=== PATIENT | female | born 1970 | race Caucasian/White ===

== ENCOUNTER 2022-05-11 10:10 | Observation (INO) ==
--- NOTE | 2022-05-09 15:43 | Anesthesiology Consultation ---
Date of Service May 09, 2022 Assessment & Plan (1) Encounter for pre-operative examination: - COVID screening: Per assessment on 05/04: No known COVID-19 positive contacts or current COVID-19 related symptoms. Travel screen negative. Patient vaccinated. At surgeon discretion if preop Covid testing being done. - Patient acceptable risk for surgery pending preop BMP (done 05/09/22, [place]- results pending). - addendum 05/10/22: BMP resulted, as above and reviewed-acceptable to proceed. - Patient requiring admission post-operatively. Plan for recheck with COVID Day AM DOS due to possibility that patient may have a roommate. OR aware. Day order placed. Chart Review Chart Review: Acceptable Risk for Surgery and Patient NOT seen in Pre Admission Testing History Surgery Operation Date: 05/11/22 12:55 Proposed Procedures p L3-L5 Decompression and Fusion, Spinal Cord Monitoring - Kirill Castellanos DO Height/Weight Height: 5 ft 4 in Weight: 104.326 kg Allergies Allergy/AdvReac Type Severity Reaction Status Date / Time theophylline Allergy Slo-bid Verified 05/11/22 10:41 (unknown reaction as child) Medications Home Medications Medication Instructions Recorded Confirmed Last Taken acetaminophen 325 mg tablet 325 mg PO QAM PRN Pain 01/22/22 05/11/22 05/11/22 08:00 (Tylenol) atorvastatin 20 mg tablet 20 mg PO QAM 01/22/22 05/11/22 05/11/22 08:00 fluticasone propionate 50 1 spray intranasal Q12H PRN 01/22/22 05/11/22 05/11/22 08:00 mcg/actuation nasal Allergic Symptoms spray,suspension furosemide 20 mg tablet (Lasix) 20 mg PO QAM PRN Fluid Retention 01/22/22 05/11/22 Unknown loratadine 10 mg tablet (Claritin) 10 mg PO DAILY PRN Allergic 01/22/22 05/11/22 05/10/22 08:00 Symptoms multivitamin 1 tab PO QAM 01/22/22 05/11/22 05/10/22 14:00 omeprazole 20 mg tablet,delayed 20 mg PO QAM PRN Acid Reflux 05/04/22 05/11/22 05/11/22 08:00 release Active Medications Generic Name Dose Route Start Last Admin Trade Name Freq PRN Reason Stop Dose Admin Acetaminophen 1,000 mg 05/11/22 06:00 05/11/22 10:58 Acetaminophen 500 Mg Tab PO 05/11/22 18:00 Not Given PREOP DEYSI Celecoxib 200 mg 05/11/22 06:00 05/11/22 10:57 Celebrex 200 Mg Cap PO 05/11/22 18:00 200 mg PREOP DEYSI Administration Gabapentin 900 mg 05/11/22 06:00 05/11/22 10:58 Gabapentin 900 Mg Dose PO 05/11/22 18:00 900 mg PREOP DEYSI Administration Lactated Ringer's 1,000 mls @ 15 mls/hr 05/11/22 06:00 05/11/22 11:07 Lr IV 05/12/22 05:59 15 mls/hr .Q24H DEYSI Administration Past Medical History Medical History Asthma CHILDHOOD, NO ISSUES SINCE EARLY TEENS Endometriosis GERD (gastroesophageal reflux disease) Hx of renal calculi ABLE TO PASS W/ OUT INTERVENTION Hyperlipidemia Obesity Seasonal allergies Past Family History Family History Other No family history of adverse response to anesthesia Past Surgical History Surgical History Hx of section Hx of hysterectomy Hx of laparoscopy Hx of oral surgery Social History Smoking Status: Former smoker tobacco type: cigarettes Smoking cigarettes per day: QUIT 01/2022 Do You Dip or Chew Tobacco: No Hx Alcohol Use: Yes alcohol intake frequency: a few times a week Hx Substance Use: No substance use type: does not use Physical Exam Vital Signs Last Vital Signs Temp 36.7 C 05/11/22 10:44 Pulse 70 05/11/22 10:44 Resp 20 05/11/22 10:44 BP 113/78 05/11/22 10:44 Pulse Ox 95 05/11/22 10:44 O2 Del Method Room Air 05/11/22 10:44 Lab Results Anesthesia Preop Results Results Anesthesia Widget: WBC 7.80 K/ul (4.8-10.8) 05/09/22 Hgb 12.7 g/dl (12.0-16.0) 05/09/22 Hct 38.8 % (37.0-47.0) 05/09/22 Plt 311 K/uL (130-400) 05/09/22 Na 141 mmol/L (136-145) 05/09/22 K 3.9 mmol/L (3.5-5.1) 05/09/22 Cl 108 mmol/L (98-107) H 05/09/22 CO2 28 mmol/L (21-32) 05/09/22 BUN 13 mg/dl (6-23) 05/09/22 Creat 0.59 mg/dl (0.6-1.2) L 05/09/22 Glucose Level 117 mg/dl (70-99(Fasting)) H 05/09/22 PT 10.5 Seconds (9.0-12.0) 05/09/22 PTT 25.9 Seconds (21.0-31.0) 05/09/22 INR 1.0 (0.9-1.1) 05/09/22 Urine Color Yellow 05/09/22 Urine Appearance Clear (Clear) 05/09/22 Urine pH 6.5 (4.5-7.5) 05/09/22 Urine Specific [place] 1.024 (1.000-1.030) 05/09/22 Urine Protein Negative (Negative) 05/09/22 Urine Glucose (UA) Negative (Negative) 05/09/22 Urine Ketones Negative (Negative) 05/09/22 Urine Blood Negative (Negative) 05/09/22 Urine Nitrite Negative (Negative) 05/09/22 Urine Bilirubin Negative (Negative) 05/09/22 Urine Urobilinogen Negative (Negative) 05/09/22 Urine Leukocyte Esterase Negative (Negative) 05/09/22 SARS-CoV-2, RNA, NAAT NEGATIVE (NEGATIVE) 05/11/22 Blood Type A Positive 05/09/22 Antibody Screen NEGATIVE 05/09/22 Testing Electrocardiogram Date: 01/26/22 NSR at 74bpm. Chest X-Ray Date: 01/26/22 Findings: + NAD
[~2022-05-11 10:10] MED LIST: ACETAMINOPHEN 500 MG TAB PO SCH; CeleBREX 200 MG CAP PO SCH; GABAPENTIN 900 MG DOSE PO SCH; LR 15ML/HR IV SCH; ceFAZolin 2000MG 2,000 MG/15 ML SYR IV SCH
[2022-05-11] MEDS ORDERED: MIDAZOLAM HCL 1 MG/ML 2ML VIAL ONE (11:14)
[2022-05-11] MEDS ORDERED: fentaNYL citrate PF 100 MCG/2 ML VIAL ONE ×3 (11:14→15:24)
[2022-05-11] MEDS ORDERED: ATROPINE SULFATE 0.1 MG/ML 10ML SYR IV PRN (12:14)
[2022-05-11] MEDS ORDERED: ePHEDrine sulfate 50 MG/ML AMP IV PRN (12:14)
[2022-05-11] MEDS ORDERED: fentaNYL citrate PF 100 MCG/2 ML VIAL IV PRN (12:14)
[2022-05-11] MEDS ORDERED: ONDANSETRON INJ 2 MG/ML 2 ML VIAL IV PRN ×2 (12:14→17:20)
--- NOTE | 2022-05-11 12:44 | History & Physical Bridge Note ---
Date of Service May 11, 2022 History & Physical Bridge Note I have examined the patient, reviewed the History & Physical and in the interval since the performance of the History & Physical I have noted the following changes of clinical significance: no changes noted
--- NOTE | 2022-05-11 12:45 | History & Physical Report ---
Date of Service May 11, 2022 Assessment & Plan (1) Neurogenic claudication due to lumbar spinal stenosis: Plan: L3-L5 decompression and fusion History of Present Illness Chief Complaint: Back and leg pain Primary Care Provider: Arjnu Browne DO This is a 51-year-old female who presents with above-mentioned diagnosis after failing course of nonoperative care she is here for surgical intervention. Allergies Allergy/AdvReac Type Severity Reaction Status Date / Time theophylline Allergy Slo-bid Verified 05/11/22 10:41 (unknown reaction as child) Home Medications Medication Instructions Recorded Confirmed Type acetaminophen 325 mg tablet 325 mg PO QAM PRN Pain 01/22/22 05/11/22 History (Tylenol) atorvastatin 20 mg tablet 20 mg PO QAM 01/22/22 05/11/22 History fluticasone propionate 50 1 spray intranasal Q12H PRN 01/22/22 05/11/22 History mcg/actuation nasal Allergic Symptoms spray,suspension furosemide 20 mg tablet (Lasix) 20 mg PO QAM PRN Fluid Retention 01/22/22 05/11/22 History loratadine 10 mg tablet (Claritin) 10 mg PO DAILY PRN Allergic 01/22/22 05/11/22 History Symptoms multivitamin 1 tab PO QAM 01/22/22 05/11/22 History omeprazole 20 mg tablet,delayed 20 mg PO QAM PRN Acid Reflux 05/04/22 05/11/22 History release Past Med/Surg History Medical History Asthma CHILDHOOD, NO ISSUES SINCE EARLY TEENS Endometriosis GERD (gastroesophageal reflux disease) Hx of renal calculi ABLE TO PASS W/ OUT INTERVENTION Hyperlipidemia Obesity Seasonal allergies Surgical History Hx of section Hx of hysterectomy Hx of laparoscopy Hx of oral surgery Family History Other No family history of adverse response to anesthesia Social History Smoking Status: Former smoker Cigarettes Per Day: QUIT 01/2022; Second Hand Exposure: No; Do You Dip or Chew Tobacco: No; Tobacco Cessation Education Requested by Patient: No Hx Alcohol Use: Yes Hx Substance Use: No Preferred Language: Czech Communication Ability: Effective Relish Blender Required: No Beliefs That Will Affect Care: None Current Living Situation: Spouse Other Information That Helps Us Care for You: No Feels Safe at Home: Yes Safety Concerns: Feels Safe At This Time Assistive Devices: Glasses Physical Exam Physical Exam: Patient is alert and oriented Heart regular rhythm Lungs clear Results & Data Results & Data Vital Signs (Past 12 Hours) Vital Signs Temp Pulse Resp BP Pulse Ox O2 Del Method 05/11/22 10:44 36.7 C 70 20 113/78 95 Room Air
[2022-05-11] MEDS ORDERED: ceFAZolin 330 MG/ML 1 GM VIAL ONE (13:08)
[2022-05-11] MEDS ORDERED: BUPIVACAINE/EPINEPHRINE 0.25% 1:200,000 30 ML VIAL ONE (13:08)
[2022-05-11] MEDS ORDERED: KETAMINE 50 MG/5 ML SYRINGE ONE (13:33)
[2022-05-11] MEDS ORDERED: ONDANSETRON INJ 2 MG/ML 2 ML VIAL ONE (13:52)
[2022-05-11] MEDS ORDERED: DEXAMETHASONE SOD INJ 4 MG/ML VIAL ONE (13:52)
[2022-05-11] MEDS ORDERED: ROCURONIUM BROMIDE 10 MG/ML 5 ML VIAL IV ONE (13:52)
[2022-05-11] MEDS ORDERED: ePHEDrine sulfate 50 MG/ML AMP ONE (14:12)
[2022-05-11] MEDS ORDERED: FLOSEAL HEMOSTATIC MATRIX 10ML TOP ONE (14:14)
[2022-05-11] MEDS ORDERED: NEOSTIGMINE METHYLSULFATE 1 MG/ML 10ML VIAL ONE (15:23)
[2022-05-11] MEDS ORDERED: GLYCOPYRROLATE 0.2 MG/ML VIAL ONE (15:23)
--- NOTE | 2022-05-11 15:29 | Operative Report ---
Post Operative Report Pre & Post Diagnosis Operation Date: 05/11/22 12:55 Pre-Op Diagnosis: Spinal Stenosis, Lumbar Region with Neurogenic Cladication Spondylolisthesis L4-L5 Morbid obesity Post-Op Diagnosis: Same I identified the patient and participated in the time-out.: Yes Procedure Operation Date: 05/11/22 12:55 Actual Procedures #1 lumbar decompression bilaterally facetectomies and foraminotomies L2-L3, L3- L4 and L4-5 per #2 posterior spinal fusion L3-L4 L4-L5. #3 placement posterior instrumentation L3-L5. #4 interbody fusion L3-L4 L4-L5 #5 placement of Spira 15 x 26 mm cage at L3-4 and 14 x 26 mm cage at L4-L5. #6 placement locally harvested morselized autograft in the posterior gutters. #7 placement of I factor bone of the test in the interbody space and posterior lateral gutters. Surgeon Kirill Castellanos, DO Foot Drill Operator Armand Ramírez Estimated Blood Loss 250 Findings See Below The patient is 5 foot 4 weighing 110 kg with a BMI in excess of 40. Patient's body habitus did contribute to significant technical difficulty required deepest retractors and longer instruments in order to perform her procedure. This had at least 50% increased operative time. Specimens None Indications This is a 51-year-old female presents above-mentioned diagnosis after failed course of nonoperative care she is here for surgical intervention. Description of Procedure Patient was met with identified informed consent obtained. Patient was then ta timmy to the operative suite underwent patient placed in a prone position the [place] table top [place] frame. All bony prominences well-padded eyes inspected to ensure no external pressure placed upon them. This point the lumbar spine was prepped and draped in normal sterile fashion. Sharp dissection with the assistance of Bovie cautery was performed down to and exposing the lamina and transverse processes of L3 L4-5. From caudal cephalad fashion complete laminectomy of L4 L3 and partial laminectomy L2 was performed including bilaterally facetectomies and foraminotomies addressing severe spinal stenosis as well as evidence of a far lateral extraforaminal disc herniation L3-L4 on the right. After complete decompression pedicle screws were then placed at L3 L4-5 bilaterally with assistance of fluoroscopy and the properly sized randy placed. By way of a trans foraminal approach on the right complete discectomy of L4 L5 was performed endplates curetted to subcortical bleeding bone and a 14 x 26 mm spiral cage with I factor tapped in position. Then proceeded to L3-L4 and again by way the transforaminal approach and right complete discectomy performed endplates curetted to subcortically bone and a 15 x 26 mm Spira cage filled with I factor tapped in position. The rods then compressed locked into final position bilaterally. The transverse processes of L3 L4-5 burred to subcortica lly bone. I factor combined with the test and locally harvested morselized autograft was placed in the posterior gutters. 15 round JAKE drain inserted. The incision was then closed with 1 Vicryl in the fascia 2-0 Vicryl subcutaneously and 4 Monocryl for final skin closure. Steri-Strips and sterile dressing placed. Patient awakened and taken to PACU in stable condition. Please note spinal cord monitoring was utilized at the procedure no changes noted. Lastly Armand Ramírez was present at the entire procedure and while the patient positioning complex portions of the surgery and final skin closure. I attest to the content of the Intraoperative Record and any orders documented therein. Any exceptions are noted below.
--- NOTE | 2022-05-11 15:36 | Fluoroscopy Report ---
FL lumbar spine 2-3V CLINICAL HISTORY: L3-5 DFI TECHNIQUE: 2 views were obtained with the C-arm in the OR with the above procedure. Total fluoroscopy time was 21.4 seconds. Radiation dose was 25.4 mGy. Comparison: None available at the time of this dictation. FINDINGS/IMPRESSION: Intraoperative images were obtained of L3-L5 discectomy and fusion. Please correlate with intraoperative fluoroscopy and operative report. ACT 112: Negative or not required by law. Electronically signed by: Nitish Munoz M.D. 05/11/2022 3:34 PM
[2022-05-11] MEDS: HYDROmorphone INJ 2 MG/ML SYR/VIAL IV PRN ×3 (16:38→16:52)
[2022-05-11] MEDS ORDERED: PROMETHAZINE HCL 12.5 MG in SODIUM CHLORIDE 0.9% 50 ML IV PRN (17:20)
[2022-05-11] MEDS ORDERED: FUROSEMIDE 20 MG TAB PO PRN (17:20)
[2022-05-11] MEDS ORDERED: ONDANSETRON 4 MG OD TAB PO PRN (17:20)
[2022-05-11] MEDS ORDERED: ACETAMINOPHEN 1,000 MG/100 ML VIAL IV PRN (17:20)
[2022-05-11] MEDS ORDERED: NALOXONE HCL 0.4 MG/1 ML VIAL/CARP IV PRN (17:20)
[2022-05-11] MEDS ORDERED: bisacodyL 10 MG SUPP PR PRN (17:20)
[2022-05-11] MEDS ORDERED: DO NOT ADMINISTER FLU VACCINE PRN (17:20)
[2022-05-11] MEDS ORDERED: traMADol HCL 50 MG TABLET PO PRN (17:20)
[2022-05-11] MEDS ORDERED: LORATADINE 10 MG TAB PO PRN (17:20)
[2022-05-11] MEDS ORDERED: METOCLOPRAMIDE HCL INJ 5 MG/ML 2 ML VIAL IV PRN (17:20)
[2022-05-11] MEDS ORDERED: LORazepam 0.5 MG TAB PO PRN (17:20)
[2022-05-11] MEDS ORDERED: FLUTICASONE PROPIONATE NA SPR 16 GM BTL PRN (17:20)
[2022-05-11] MEDS ORDERED: ALUMINUM/MAGNESIUM SUSP 30 ML UDC PO PRN (17:20)
[2022-05-11] MEDS ORDERED: LORazepam 2 MG/1 ML VIAL IV PRN (17:20)
[2022-05-11] MEDS ORDERED: DO NOT ADMINISTER PNEUMOCOCCAL VACCINE PRN (17:20)
[2022-05-11] MEDS ORDERED: SOD PHOSPHATE/SOD BIPHOSPHATE ENEMA 132 ML BTL PR PRN (17:20)
[2022-05-11] MEDS ORDERED: hydrOXYzine HCl 25 MG TAB PO PRN (17:20)
[2022-05-11] MEDS ORDERED: MAGNESIUM HYDROXIDE SUSP 30 ML UDC PO PRN (17:20)
[2022-05-11] MEDS ORDERED: PANTOprazole 40 MG TAB PO PRN (17:35)
[2022-05-11] MEDS: LACTATED RINGER'S 1,000 ML IV SCH (17:42)
[2022-05-11] MEDS: FAMOTIDINE 20 MG TAB PO PRN (17:51)
--- NOTE | 2022-05-11 18:30 | Consultation ---
Date of Consultation May 11, 2022 Assessment & Plan (1) Neurogenic claudication due to lumbar spinal stenosis: (2) Hyperlipidemia: (3) Obesity: (4) GERD (gastroesophageal reflux disease): Plan Neurogenic claudication 2/2 lumbar spinal stenosis Patient is 51 yr old F status post L3-L5 lumbar decompression fusion by Dr. Castellanos, POD #0 EBL 250 mL, JAKE drain output 120 mL Tolerated procedure well Monitor for anemia Pain/wound management per orthopedic Activity and therapy as directed by orthopedic Encourage incentive spirometry Monitor hemoglobin, preop 12.7 Hyperlipidemia Continue statin GERD Continue PPI Morbid Obesity, BMI 41.6 Encourage diet and lifestyle modifications DVT ppx: per ortho/SCDS Dispo: per ortho FULL CODE PCP: Arjun Browne Thank you for this consultation. We will follow the patient with you during their hospital stay. You can reach a member of the [facility] Hospitalist Team 03/09 via hospitalist role on tiger text. A total of 40 minutes was spent with greater than 50% of that time personally viewing all current laboratory work and diagnostic imaging studies obtained in the ED. Additionally, I was able to view the patients past medication reconciliation and history with direct visualization in the patients chart. Included in the time above, a portion of that time was spent assessing the patient while discussing and collaborating with specialists, if necessary, and making medical decision making on treatment plan. All of the above was collaborated with Dr. Bennett. Please see addendum for further details. Supervising Physician Co-Signing Physician Notes Pt seen and examined by me , care coordinated w/ Cate Min PA-C, pls refer to her note above for further detail. Pt is a 51 yo F with hx of of asthma, GERD, hyperlipidemia, obesity, seasonal allergies, endometriosis who is s/p lumbar spine surgery by Dr. Castellanos. Patient underwent L3-L5 discectomy and fusion. She tolerated the procedure well. Currently feels little nauseous, reports having post-surg. pain in PACU but now well controlled. She is awake alert oriented, answering questions debora ropriately. She is currently on supplemental oxygen, lung sounds are clear to auscultation without any wheezing or rhonchi or crackles. Heart sounds regular. Abdomen is soft nontender nondistended, obese, with positive bowel sounds. She is able to move lower extremities. Plan as above, continue to closely monitor, encourage incentive spirometer, order H&H for tomorrow morning. MD Donald History of Present Illness Requesting Physician: Dr. Castellanos Reason for Consultation: Post op medical management Attending Physician: Kirill Castellanos DO History of Present Illness This is a 51-year-old female who has a significant past medical history of asthma, GERD, hyperlipidemia, obesity, seasonal allergies endometriosis who presents for elective back surgery by Dr. Castellanos. Patient underwent L3-L5 discectomy and fusion. She tolerated the procedure well. Patient follows Dr. Browne in OP setting. Currently complains of incisional tenderness and some N/belching. She can feel her RLE which is significant improvement since the surgery. She denies f/c/s, chest pain, sob, cough, vomiting, abd pain, change in bowel or urinary habits. She does report hx of seasonal allergies/asthma for which she takes antihistamine and nasal spray. She has hx of HLD and is on statin therapy. She occasionally gets swelling to lower ext, mainly in summer. She takes as needed lasix for this. Allergies Allergy/AdvReac Type Severity Reaction Status Date / Time theophylline Allergy Slo-bid Verified 05/11/22 10:41 (unknown reaction as child) Home Medications Medication Instructions Recorded Confirmed Type acetaminophen 325 mg tablet 325 mg PO QAM PRN Pain 01/22/22 05/11/22 History (Tylenol) atorvastatin 20 mg tablet 20 mg PO QAM 01/22/22 05/11/22 History fluticasone propionate 50 1 spray intranasal Q12H PRN 01/22/22 05/11/22 History mcg/actuation nasal Allergic Symptoms spray,suspension furosemide 20 mg tablet (Lasix) 20 mg PO QAM PRN Fluid Retention 01/22/22 05/11/22 History loratadine 10 mg tablet (Claritin) 10 mg PO DAILY PRN Allergic 01/22/22 05/11/22 History Symptoms multivitamin 1 tab PO QAM 01/22/22 05/11/22 History omeprazole 20 mg tablet,delayed 20 mg PO QAM PRN Acid Reflux 05/04/22 05/11/22 History release Patient History Medical History Asthma CHILDHOOD, NO ISSUES SINCE EARLY TEENS Endometriosis GERD (gastroesophageal reflux disease) Hx of renal calculi ABLE TO PASS W/ OUT INTERVENTION Hyperlipidemia Obesity Seasonal allergies Surgical History Hx of section Hx of hysterectomy Hx of laparoscopy Hx of oral surgery Family History Other No family history of adverse response to anesthesia Social History Smoking Status: Former smoker Cigarettes Per Day: QUIT 01/2022; Second Hand Exposure: No; Do You Dip or Chew Tobacco: No; Tobacco Cessation Education Requested by Patient: No Hx Alcohol Use: Yes Hx Substance Use: No Preferred Language: Libyan Communication Ability: Effective Inside Steward/Stewardess Required: No Beliefs That Will Affect Care: None Current Living Situation: Spouse Other Information That Helps Us Care for You: No Feels Safe at Home: Yes Safety Concerns: Feels Safe At This Time Assistive Devices: Glasses Review of Systems Review of Systems: All systems reviewed & are unremarkable except as noted in HPI & below Physical Exam Physical Exam: please refer to DR. Bennett addendum from physical exam findings. Results & Data Vital Signs (Past 12 Hours) Vital Signs Temp Pulse Pulse Pulse Resp BP Pulse Ox 05/11/22 17:20 36.4 C L 75 16 112/72 96 05/11/22 17:10 63 16 118/79 95 05/11/22 17:00 67 14 122/68 95 05/11/22 16:50 65 14 135/76 96 05/11/22 16:40 75 16 128/74 96 05/11/22 16:30 36.2 C L 76 14 130/81 94 05/11/22 16:20 81 18 140/82 94 05/11/22 16:10 85 20 143/79 H 96 05/11/22 16:00 74 12 127/80 96 05/11/22 15:54 36 C L 97 H 14 140/83 97 05/11/22 10:44 36.7 C 70 20 113/78 95 O2 Del Method O2 Flow Rate 05/11/22 17:20 Nasal Cannula 2 05/11/22 17:10 Nasal Cannula 2 05/11/22 17:00 Room Air 05/11/22 16:50 Room Air 05/11/22 16:40 Room Air 05/11/22 16:30 Room Air 05/11/22 16:20 Room Air 05/11/22 16:10 Oxymask 9 05/11/22 16:00 Oxymask 12 05/11/22 15:54 Oxymask 9 05/11/22 10:44 Room Air Laboratory Results Preop lab work 05/09/2022 revealed WBC 7.80, H&H 12.7 and 38.8, platelet 311, sodium 141, potassium 3.9, chloride 108, BUN 13 creatinine 0.59, glucose 117, urinalysis negative Diagnostic Findings Lumbar Spine X-Ray 05/11/22 12:55 FL lumbar spine 2-3V CLINICAL HISTORY: L3-5 DFI TECHNIQUE: 2 views were obtained with the C-arm in the OR with the above procedure. Total fluoroscopy time was 21.4 seconds. Radiation dose was 25.4 mGy. Comparison: None available at the time of this dictation. FINDINGS/IMPRESSION: Intraoperative images were obtained of L3-L5 discectomy and fusion. Please correlate with intraoperative fluoroscopy and operative report. ACT 112: Negative or not required by law. Electronically signed by: Nitish Munoz M.D. 05/11/2022 3:34 PM Medications Administered Current Inpatient Medications Acetaminophen (Acetaminophen 500 Mg Tab) 1,000 mg PO Q8H PRN PRN Reason: MILD Pain Scale 1,2,3 & Pre PT Stop: 06/10/22 17:19 Al Hydrox/Mg Hydrox/Simethicone (Aluminum/Magnesium Susp 30 Ml Udc) 30 ml PO Q6H PRN PRN Reason: Dyspepsia Stop: 06/10/22 17:19 Atorvastatin Calcium (Atorvastatin 20 Mg Tab) 20 mg PO QAM DEYSI Stop: 06/11/22 08:59 Atropine Sulfate (Atropine Sulfate 0.1 Mg/Ml 10ml Syr) 0.5 mg IV Q1M PRN PRN Reason: PACU Use-HR<40 &/or Bradycardi Stop: 05/11/22 20:15 Bisacodyl (Bisacodyl 10 Mg Supp) 10 mg LA DAILY PRN PRN Reason: Constipation Stop: 06/10/22 17:19 Diphenhydramine HCl (Diphenhydramine Capsule 25 Mg Cap) 25 mg PO Q6H PRN PRN Reason: Allergic Rhinitis/Insomnia Stop: 06/10/22 17:19 Ephedrine Sulfate (Ephedrine Sulfate 50 Mg/Ml Amp) 5 mg IV Q5M PRN PRN Reason: PACU Use Only-SBP<90 mmHg Stop: 05/11/22 20:15 Famotidine (Famotidine 20 Mg Tab) 20 mg PO Q12H PRN PRN Reason: Dyspepsia Stop: 06/10/22 17:19 Last Admin: 05/11/22 17:51 Dose: 20 mg Fentanyl Citrate (Fentanyl Citrate Pf 100 Mcg/2 Ml Vial) 50 mcg IV Q5M PRN PRN Reason: PACU Use Only-Pain Stop: 05/11/22 20:15 Fluticasone Propionate (Fluticasone Propionate Na Spr 16 Gm Btl) 1 sprays NA Q12H PRN PRN Reason: Allergic Symptoms Stop: 06/10/22 17:19 Furosemide (Furosemide 20 Mg Tab) 20 mg PO QAM PRN PRN Reason: Fluid Retention Stop: 06/10/22 17:19 Hydromorphone HCl (Hydromorphone Inj 2 Mg/Ml Syr/Vial) 0.5 mg IV Q5M PRN PRN Reason: PACU Use Only-Pain Stop: 05/11/22 20:15 Last Admin: 05/11/22 16:52 Dose: 0.5 mg Hydromorphone HCl (Hydromorphone Inj 0.5 Mg/0.5 Ml Syr) 0.5 mg IV Q3H PRN PRN Reason: MODERATE Pain (Scale 4,5,6) & Stop: 05/25/22 17:19 Hydromorphone HCl (Hydromorphone Inj 1 Mg/Ml Syringe) 1 mg IV Q3H PRN PRN Reason: SEVERE Pain (Scale 7,8,9,10) Stop: 05/25/22 17:19 Hydroxyzine HCl (Hydroxyzine Hcl 25 Mg Tab) 25 mg PO Q8H PRN PRN Reason: Anxiety Stop: 06/10/22 17:19 Lactated Ringer's (Lr) 1,000 mls @ 150 mls/hr IV .Q6H40M DEYSI Stop: 06/10/22 17:19 Last Admin: 05/11/22 17:42 Dose: 150 mls/hr Promethazine HCl 12.5 mg/ (Sodium Chloride) 50.5 mls @ 202 mls/hr IV Q6H PRN PRN Reason: Nausea &/or Vomiting Stop: 06/10/22 17:19 Acetaminophen (Ofirmev) 1,000 mg in 100 mls @ 400 mls/hr IV Q8H PRN PRN Reason: Pain Rating 1-3 & Pre PT Stop: 05/12/22 17:21 Cefazolin Sodium (Ancef 2000mg) 2,000 mg in 15 mls @ 3.75 mls/min IV Q8H DEYSI; Protocol Stop: 05/12/22 05:33 Dexamethasone 6 mg/ Syringe 1.5 mls @ 1 mls/min IV DAILY DEYSI Stop: 05/14/22 09:02 Influenza Virus Vaccine Quadrival (Do Not Administer Flu Vaccine) 1 each N/A PRN PRN PRN Reason: Notification Stop: 06/10/22 17:19 Loratadine (Loratadine 10 Mg Tab) 10 mg PO DAILY PRN PRN Reason: Allergic Symptoms Stop: 06/10/22 17:19 Lorazepam (Lorazepam 0.5 Mg Tab) 0.5 mg PO Q8H PRN PRN Reason: Sedation/Anxiety Stop: 06/10/22 17:19 Lorazepam (Lorazepam 2 Mg/1 Ml Vial) 0.5 mg IV Q8H PRN PRN Reason: Sedation/Anxiety Stop: 06/10/22 17:19 Magnesium Hydroxide (Magnesium Hydroxide Susp 30 Ml Udc) 30 ml PO Q24H PRN PRN Reason: Constipation Stop: 06/10/22 17:19 Metoclopramide HCl (Metoclopramide Hcl Inj 5 Mg/Ml 2 Ml Vial) 10 mg IV Q6H PRN PRN Reason: Nausea &/or Vomiting Stop: 06/10/22 17:19 Multivitamins (Multivitamin Tab) 1 tab PO QAM DEYSI Stop: 06/11/22 08:59 Naloxone HCl (Naloxone Hcl 0.4 Mg/1 Ml Vial/Carp) 0.1 mg IV Q5M PRN PRN Reason: Oversedation/Resp depression Stop: 06/10/22 17:19 Ondansetron HCl (Ondansetron Inj 2 Mg/Ml 2 Ml Vial) 4 mg IV ONCE PRN PRN Reason: PACU Use Only-Nausea/Vomiting Stop: 05/11/22 20:15 Ondansetron HCl (Ondansetron Inj 2 Mg/Ml 2 Ml Vial) 4 mg IV Q6H PRN PRN Reason: Nausea &/or Vomiting Stop: 06/10/22 17:19 Ondansetron HCl (Ondansetron 4 Mg Od Tab) 4 mg PO Q6H PRN PRN Reason: Nausea Stop: 06/10/22 17:19 Oxycodone HCl (Oxycodone Hcl Ir 5 Mg Tab (Immediate Release)) 5 - 10 mg PO Q4H PRN PRN Reason: Pain & Pre PT Stop: 05/25/22 17:19 Pantoprazole Sodium (Pantoprazole 40 Mg Tab) 40 mg PO QAM PRN PRN Reason: Acid Reflux Stop: 06/10/22 17:34 Pneumococcal Polyvalent Vaccine (Do Not Administer Pneumococcal Vaccine) 1 each N/A PRN PRN PRN Reason: Notification Stop: 06/10/22 17:19 Polyethylene Glycol (Polyethylene (Miralax) 17 Gm Pack) 17 gm PO Q6 DEYSI Stop: 06/11/22 05:59 Senna/Docusate Sodium (Docusate Sodium/Senna 50/8.6mg Tab) 2 tab PO HS DEYSI Stop: 06/10/22 20:59 Sodium Biphosphate/Sodium Phosphate (Sod Phosphate/Sod Biphosphate Enema 132 Ml Btl) 132 ml LA ONE PRN PRN Reason: Constipation Stop: 06/10/22 17:19 Tramadol HCl (Tramadol Hcl 50 Mg Tablet) 50 - 100 mg PO Q4H PRN PRN Reason: Moderate-Severe pain & Pre PT Stop: 06/10/22 17:19 ECG Rate (beats per minute): 74 Rhythm: normal sinus
--- NOTE | 2022-05-11 18:39 | Anesthesiology Progress Note ---
Date of Service May 11, 2022 Anesthesia Post Procedure Vital Signs Vital Signs: Temp Pulse Pulse Pulse Resp BP Pulse Ox 05/11/22 18:28 05/11/22 17:50 36.5 C 72 16 108/76 95 05/11/22 18:24 36.3 C L 63 16 104/66 94 05/11/22 17:20 36.4 C L 75 16 112/72 96 05/11/22 17:10 63 16 118/79 95 05/11/22 17:00 67 14 122/68 95 05/11/22 16:50 65 14 135/76 96 05/11/22 16:40 75 16 128/74 96 05/11/22 16:30 36.2 C L 76 14 130/81 94 05/11/22 16:20 81 18 140/82 94 05/11/22 16:10 85 20 143/79 H 96 05/11/22 16:00 74 12 127/80 96 05/11/22 15:54 36 C L 97 H 14 140/83 97 05/11/22 10:44 36.7 C 70 20 113/78 95 O2 Del Method O2 Flow Rate 05/11/22 18:28 Nasal Cannula 2 05/11/22 17:50 Nasal Cannula 2 05/11/22 18:24 Nasal Cannula 2 05/11/22 17:20 Nasal Cannula 2 05/11/22 17:10 Nasal Cannula 2 05/11/22 17:00 Room Air 05/11/22 16:50 Room Air 05/11/22 16:40 Room Air 05/11/22 16:30 Room Air 05/11/22 16:20 Room Air 05/11/22 16:10 Oxymask 9 05/11/22 16:00 Oxymask 12 05/11/22 15:54 Oxymask 9 05/11/22 10:44 Room Air Pain Intensity Back: Pain Intensity: 4 Transfer of Care Handoff Completed per policy Notes Mental Status: alert / awake / arousable and participated in evaluation Patient Amnestic to Procedure: Yes Nausea / Vomiting: adequately controlled Pain: adequately controlled Airway Patency, RR, SpO2: stable & adequate BP & HR: stable & adequate Hydration State: stable & adequate Anesthetic Complications: no major complications apparent and Pt Satisfied with anesthetic care
[2022-05-11] MEDS: ceFAZolin 2000MG 2,000 MG/15 ML SYR IV SCH (20:47)
[2022-05-11] MEDS: DOCUSATE SODIUM/SENNA 50/8.6MG TAB PO SCH (20:47)
[2022-05-11] MEDS: HYDROmorphone INJ 0.5 MG/0.5 ML SYR IV PRN (23:43)
[2022-05-12] MEDS: LACTATED RINGER'S 1,000 ML IV SCH (00:43)
[2022-05-12] MEDS: HYDROmorphone INJ 1 MG/ML SYRINGE IV PRN ×2 (02:18→11:23)
[2022-05-12] MEDS: ceFAZolin 2000MG 2,000 MG/15 ML SYR IV SCH (05:30)
[2022-05-12] MEDS: POLYETHYLENE (MIRALAX) 17 GM PACK PO SCH ×4 (05:30→20:42)
[2022-05-12] MEDS: HYDROmorphone INJ 0.5 MG/0.5 ML SYR IV PRN (05:40)
[2022-05-12 06:29] LABS: Basophils # (auto) 0.05 K/uL (0-0.2); Basophils % (auto) 0.4 %; Hematocrit (blood only) 31.9 % (37.0-47.0); Hemoglobin 10.5 g/dl (12.0-16.0); Immature Granulocytes # (auto) 0.09 K/uL (0.01-0.20); Immature Granulocytes % (auto) 0.7 %; Lymphocytes # (auto) 1.49 K/uL (1.2-3.4); Lymphocytes % (auto) 11.1 %; Mean Corpuscular Hemoglobin 31.1 pg (25.0-34.0); Mean Corpuscular Hgb Conc 32.9 g/dL (32.0-36.0); Mean Corpuscular Volume 94.4 fL (80.0-100.0); Mean Platelet Volume 9.8 fL (9.4-12.4); Monocytes # (auto) 1.02 K/uL (0.11-0.59); Monocytes % (auto) 7.6 %; Neutrophils # (auto) 10.75 K/uL (1.40-6.50); Neutrophils % (auto) 80.2 %; Platelet Count 268 K/uL (130-400); RDW Coefficient of Variation 13.3 % (11.5-14.5); RDW Standard Deviation 45.9 fL (36.4-46.3); Red Blood Count 3.38 M/uL (4.20-5.40)
[2022-05-12 06:34] LABS: Calcium 9.1 mg/dl (8.6-10.3); Est GFR (African American) 121.5 ml/min; Est GFR (Non-African American) 104.8 ml/min; Potassium 4.7 mmol/L (3.5-5.1)
[2022-05-12] MEDS: ATORVASTATIN 20 MG TAB PO SCH (08:27)
[2022-05-12] MEDS: MULTIVITAMIN TAB PO SCH (08:27)
[2022-05-12] MEDS: dexAMETHasone 6 MG in SYRINGE 0 ML IV SCH (08:27)
--- NOTE | 2022-05-12 08:27 | Hospitalist Progress Note ---
Date of Service May 12, 2022 Assessment & Plan (1) Neurogenic claudication due to lumbar spinal stenosis: (2) Hyperlipidemia: (3) Obesity: (4) GERD (gastroesophageal reflux disease): Plan Neurogenic claudication 2/2 lumbar spinal stenosis Patient is 51 yr old F status post L3-L5 lumbar decompression fusion by Dr. Castellanos, POD #1 Tolerated procedure well Monitor for anemia Pain/wound management per orthopedic Activity and therapy as directed by orthopedic Encourage incentive spirometry Monitor hemoglobin, preop 12.7 Acute blood loss anemia, post-op, and also likely dilutional Pre-op Hgb 12.7, current 10.5 -expected, no need for blood transfusion - cont. to monitor H&H Hyperlipidemia Continue statin GERD Continue PPI Morbid Obesity, BMI 41.6 Encourage diet and lifestyle modifications DVT ppx: per ortho/SCDS Dispo: per ortho FULL CODE PCP: Arjun Browne Thank you for this consultation. We will follow the patient with you during their hospital stay. You can reach a member of the [facility] Hospitalist Team 03/09 via hospitalist role on tiger text. Admission and Anticipated Discharge Date Admission Date: May 11, 2022 Subjective Pt seen in follow up of med consult for s/p spinal surgery Currently laying in bed in NAD Says she had breakfast this AM and feeling better overall Previously was up to chair and felt little dizzy Purcell still in, draining yellow urine Buck any fever, chills, chest pain, shortness of breath, abd. pain, n/v. She is excited about able to move/feel her right leg since the surgery. Review of Systems Review of Systems: All systems reviewed & are unremarkable except as noted in Subjective Physical Exam Constitutional: WD/WN, vitals as above Eyes: PERRL, conjunctivae normal, anicteric sclerae ENMT: external ear and nose normal, oropharynx normal Neck: normal visual inspection Respiratory: normal respiratory effort, lungs clear to auscultation Cardiovascular: RRR, no murmur, no edema Chest (Breasts): Chest: normal inspection of chest Gastrointestinal (Abdomen): normal bowel sounds, soft, nontender, no hepatosplenomegaly Musculoskeletal: Extremities: extremities normal to inspection (moves extremities) Skin: no rashes, warm and dry Neurologic: PERRL, EOMI, accommodation nl, no face palsy, no dysarthria Psychiatric: A+Ox3, euthymic affect Results & Data Results & Data Vital Signs (Past 12 Hours) Vital Signs Temp Pulse Resp BP Pulse Ox O2 Del Method O2 Flow Rate 05/12/22 05:57 36.7 C 86 18 108/64 95 Room Air 05/12/22 05:17 95 Room Air 05/12/22 02:12 36.6 C 85 16 114/73 97 Nasal Cannula 2 05/11/22 23:36 36.8 C 95 H 16 104/66 96 Nasal Cannula 2 05/11/22 20:38 36.4 C L 81 16 121/77 99 Nasal Cannula 2 Laboratory Results 05/12/22 05/12/22 05/11/22 Range/Units 06:03 06:03 Unknown WBC 13.40 H (4.8-10.8) K/ul RBC 3.38 L (4.20-5.40) M/uL Hgb 10.5 L (12.0-16.0) g/dl Hct 31.9 L (37.0-47.0) % MCV 94.4 (80.0-100.0) fL MCH 31.1 (25.0-34.0) pg MCHC 32.9 (32.0-36.0) g/dL RDW Std Deviation 45.9 (36.4-46.3) fL RDW Coeff of Adolfo 13.3 (11.5-14.5) % Plt Count 268 (130-400) K/uL MPV 9.8 (9.4-12.4) fL Immature Gran % (Auto) 0.7 % Neut % (Auto) 80.2 % Lymph % (Auto) 11.1 % [place] % (Auto) 7.6 % Eos % (Auto) 0.0 % Baso % (Auto) 0.4 % Neut # (Auto) 10.75 H (1.40-6.50) K/uL Lymph # (Auto) 1.49 (1.2-3.4) K/uL [place] # (Auto) 1.02 H (0.11-0.59) K/uL Eos # (Auto) 0.00 (0-0.50) K/uL Baso # (Auto) 0.05 (0-0.2) K/uL Immature Gran # (Auto) 0.09 (0.01-0.20) K/uL Sodium 138 (136-145) mmol/L Potassium 4.7 (3.5-5.1) mmol/L Chloride 107 (98-107) mmol/L Carbon Dioxide 24 (21-32) mmol/L Anion Gap 7 (3-11) BUN 12 (6-23) mg/dl Creatinine 0.60 (0.6-1.2) mg/dl Est Cr Clr Drug Dosing 133.0 ml/min Est GFR ( Amer) 121.5 ml/min Est GFR (Non-Af Amer) 104.8 ml/min BUN/Creatinine Ratio 20.0 (10-20) Glucose 141 H (70-99(Fasting)) mg/dl Calcium 9.1 (8.6-10.3) mg/dl SARS-CoV-2, RNA, NAAT NEGATIVE (NEGATIVE) Medications Administered Current Inpatient Medications Acetaminophen (Acetaminophen 500 Mg Tab) 1,000 mg PO Q8H PRN PRN Reason: MILD Pain Scale 1,2,3 & Pre PT Stop: 06/10/22 17:19 Al Hydrox/Mg Hydrox/Simethicone (Aluminum/Magnesium Susp 30 Ml Udc) 30 ml PO Q6H PRN PRN Reason: Dyspepsia Stop: 06/10/22 17:19 Atorvastatin Calcium (Atorvastatin 20 Mg Tab) 20 mg PO QAM DEYSI Stop: 06/11/22 08:59 Bisacodyl (Bisacodyl 10 Mg Supp) 10 mg [place] DAILY PRN PRN Reason: Constipation Stop: 06/10/22 17:19 Diphenhydramine HCl (Diphenhydramine Capsule 25 Mg Cap) 25 mg PO Q6H PRN PRN Reason: Allergic Rhinitis/Insomnia Stop: 06/10/22 17:19 Famotidine (Famotidine 20 Mg Tab) 20 mg PO Q12H PRN PRN Reason: Dyspepsia Stop: 06/10/22 17:19 Last Admin: 05/11/22 17:51 Dose: 20 mg Fluticasone Propionate (Fluticasone Propionate Na Spr 16 Gm Btl) 1 sprays NA Q12H PRN PRN Reason: Allergic Symptoms Stop: 06/10/22 17:19 Furosemide (Furosemide 20 Mg Tab) 20 mg PO QAM PRN PRN Reason: Fluid Retention Stop: 06/10/22 17:19 Hydromorphone HCl (Hydromorphone Inj 0.5 Mg/0.5 Ml Syr) 0.5 mg IV Q3H PRN PRN Reason: MODERATE Pain (Scale 4,5,6) & Stop: 05/25/22 17:19 Last Admin: 05/12/22 05:40 Dose: 0.5 mg Hydromorphone HCl (Hydromorphone Inj 1 Mg/Ml Syringe) 1 mg IV Q3H PRN PRN Reason: SEVERE Pain (Scale 7,8,9,10) Stop: 05/25/22 17:19 Last Admin: 05/12/22 02:18 Dose: 1 mg Hydroxyzine HCl (Hydroxyzine Hcl 25 Mg Tab) 25 mg PO Q8H PRN PRN Reason: Anxiety Stop: 06/10/22 17:19 Promethazine HCl 12.5 mg/ (Sodium Chloride) 50.5 mls @ 202 mls/hr IV Q6H PRN PRN Reason: Nausea &/or Vomiting Stop: 06/10/22 17:19 Acetaminophen (Ofirmev) 1,000 mg in 100 mls @ 400 mls/hr IV Q8H PRN PRN Reason: Pain Rating 1-3 & Pre PT Stop: 05/12/22 17:21 Dexamethasone 6 mg/ Syringe 1.5 mls @ 1 mls/min IV DAILY DEYSI Stop: 05/14/22 09:02 Influenza Virus Vaccine Quadrival (Do Not Administer Flu Vaccine) 1 each N/A PRN PRN PRN Reason: Notification Stop: 06/10/22 17:19 Loratadine (Loratadine 10 Mg Tab) 10 mg PO DAILY PRN PRN Reason: Allergic Symptoms Stop: 06/10/22 17:19 Lorazepam (Lorazepam 0.5 Mg Tab) 0.5 mg PO Q8H PRN PRN Reason: Sedation/Anxiety Stop: 06/10/22 17:19 Lorazepam (Lorazepam 2 Mg/1 Ml Vial) 0.5 mg IV Q8H PRN PRN Reason: Sedation/Anxiety Stop: 06/10/22 17:19 Magnesium Hydroxide (Magnesium Hydroxide Susp 30 Ml Udc) 30 ml PO Q24H PRN PRN Reason: Constipation Stop: 06/10/22 17:19 Metoclopramide HCl (Metoclopramide Hcl Inj 5 Mg/Ml 2 Ml Vial) 10 mg IV Q6H PRN PRN Reason: Nausea &/or Vomiting Stop: 06/10/22 17:19 Multivitamins (Multivitamin Tab) 1 tab PO QAM [facility] Stop: 06/11/22 08:59 Naloxone HCl (Naloxone Hcl 0.4 Mg/1 Ml Vial/Carp) 0.1 mg IV Q5M PRN PRN Reason: Oversedation/Resp depression Stop: 06/10/22 17:19 Ondansetron HCl (Ondansetron Inj 2 Mg/Ml 2 Ml Vial) 4 mg IV Q6H PRN PRN Reason: Nausea &/or Vomiting Stop: 06/10/22 17:19 Ondansetron HCl (Ondansetron 4 Mg Od Tab) 4 mg PO Q6H PRN PRN Reason: Nausea Stop: 06/10/22 17:19 Oxycodone HCl (Oxycodone Hcl Ir 5 Mg Tab (Immediate Release)) 5 - 10 mg PO Q4H PRN PRN Reason: Pain & Pre PT Stop: 05/25/22 17:19 Pantoprazole Sodium (Pantoprazole 40 Mg Tab) 40 mg PO QAM PRN PRN Reason: Acid Reflux Stop: 06/10/22 17:34 Last Admin: 05/12/22 02:29 Dose: 40 mg Pneumococcal Polyvalent Vaccine (Do Not Administer Pneumococcal Vaccine) 1 each N/A PRN PRN PRN Reason: Notification Stop: 06/10/22 17:19 Polyethylene Glycol (Polyethylene (Miralax) 17 Gm Pack) 17 gm PO Q6 DEYSI Stop: 06/11/22 05:59 Last Admin: 05/12/22 05:30 Dose: 17 gm Senna/Docusate Sodium (Docusate Sodium/Senna 50/8.6mg Tab) 2 tab PO HS [facility] Stop: 06/10/22 20:59 Last Admin: 05/11/22 20:47 Dose: 2 tab Sodium Biphosphate/Sodium Phosphate (Sod Phosphate/Sod Biphosphate Enema 132 Ml Btl) 132 ml PA ONE PRN PRN Reason: Constipation Stop: 06/10/22 17:19 Tramadol HCl (Tramadol Hcl 50 Mg Tablet) 50 - 100 mg PO Q4H PRN PRN Reason: Moderate-Severe pain & Pre PT Stop: 06/10/22 17:19
[2022-05-12] MEDS: oxyCODONE HCL IR 5 MG TAB (IMMEDIATE RELEASE) PO PRN ×4 (08:41→20:41)
--- NOTE | 2022-05-12 09:56 | Orthopedic Progress Note ---
Date of Service May 12, 2022 Assessment & Plan (1) Neurogenic claudication due to lumbar spinal stenosis: Plan: At this time initiate physical therapy monitor JAKE operatively discharge home in next few days. Admission and Anticipated Discharge Date Admission Date: May 11, 2022 Subjective Patient's back pain is controlled leg pain markedly improved Physical Exam Physical Exam: On exam she is sitting up at the bedside. Is good strength testing. Results & Data Vital Signs (Past 12 Hours) Vital Signs Temp Pulse Pulse Resp BP BP Pulse Ox 05/12/22 09:49 92 H 110/69 05/12/22 08:00 36.9 C 74 14 100/62 95 05/12/22 05:57 36.7 C 86 18 108/64 95 05/12/22 05:17 95 05/12/22 02:12 36.6 C 85 16 114/73 97 05/11/22 23:36 36.8 C 95 H 16 104/66 96 O2 Del Method O2 Flow Rate 05/12/22 09:49 05/12/22 08:00 Room Air 05/12/22 05:57 Room Air 05/12/22 05:17 Room Air 05/12/22 02:12 Nasal Cannula 2 05/11/22 23:36 Nasal Cannula 2
[2022-05-12] MEDS: DOCUSATE SODIUM/SENNA 50/8.6MG TAB PO SCH (20:41)
[2022-05-12] MEDS: diphenhydrAMINE Capsule 25 MG CAP PO PRN (21:30)
[2022-05-12] MEDS: ACETAMINOPHEN 500 MG TAB PO PRN (21:32)
[2022-05-13] MEDS: oxyCODONE HCL IR 5 MG TAB (IMMEDIATE RELEASE) PO PRN ×5 (00:45→22:01)
[2022-05-13] MEDS: POLYETHYLENE (MIRALAX) 17 GM PACK PO SCH ×4 (05:39→22:55)
[2022-05-13] MEDS: ACETAMINOPHEN 500 MG TAB PO PRN (05:48)
[2022-05-13 06:08] LABS: Hemoglobin 9.9 g/dl (12.0-16.0); Mean Corpuscular Hemoglobin 30.8 pg (25.0-34.0); Mean Corpuscular Volume 93.5 fL (80.0-100.0); Mean Platelet Volume 10.1 fL (9.4-12.4); Platelet Count 271 K/uL (130-400); RDW Coefficient of Variation 13.5 % (11.5-14.5); RDW Standard Deviation 46.4 fL (36.4-46.3); Red Blood Count 3.21 M/uL (4.20-5.40); White Blood Count 12.01 K/ul (4.8-10.8)
[2022-05-13 06:29] LABS: BUN Creatinine Ratio 25.9 (10-20); Calcium 9.2 mg/dl (8.6-10.3); Creatinine Clr Calc Pharmacy 147.8 ml/min; Est GFR (African American) 125.7 ml/min; Est GFR (Non-African American) 108.5 ml/min
[2022-05-13] MEDS: ATORVASTATIN 20 MG TAB PO SCH (07:27)
[2022-05-13] MEDS: MULTIVITAMIN TAB PO SCH (07:27)
[2022-05-13] MEDS: dexAMETHasone 6 MG in SYRINGE 0 ML IV SCH (07:27)
--- NOTE | 2022-05-13 07:54 | Orthopedic Progress Note ---
Date of Service May 13, 2022 Assessment & Plan (1) Neurogenic claudication due to lumbar spinal stenosis: Plan: Patient is stable postop day #2 status post lumbar decompression fusion from L3- L5. I have encouraged her to continue drinking fluids. Given her some fluids with electrolytes. We will continue to progress her with physical therapy. We will continue with GI DVT prophylaxis and pain control measures. All goes well we will likely be able to discharge her to home tomorrow. Admission and Anticipated Discharge Date Admission Date: May 11, 2022 Subjective Patient was seen bedside in room 303. She is sitting in her chair. She appears comfortable. She states that she had some issues where she felt lightheaded and somewhat dizzy she has been drinking water. Her right leg pain has subsided and her numbness is resolving. She denies any other numbness, tingling, paresthesias. Physical Exam Physical Exam: On exam she is alert and oriented. Her dressing is clean dry and intact. JAKE drain has placed out 25 on the previous shift and 50 prior. Her calves are supple nontender abdomen supple nontender. Her strength and sensation are grossly intact her gait was not observed. Results & Data Vital Signs (Past 12 Hours) Vital Signs Temp Pulse Resp BP Pulse Ox O2 Del Method 05/13/22 07:24 36.5 C 54 L 16 91/54 L 98 Room Air 05/12/22 21:24 36.7 C 77 16 104/65 95 Room Air
--- NOTE | 2022-05-13 09:59 | Hospitalist Progress Note ---
Date of Service May 13, 2022 Assessment & Plan (1) Neurogenic claudication due to lumbar spinal stenosis: (2) Hyperlipidemia: (3) Obesity: (4) GERD (gastroesophageal reflux disease): Plan Neurogenic claudication 2/2 lumbar spinal stenosis Patient is 51 yr old F status post L3-L5 lumbar decompression fusion by Dr. Castellanos, POD #2 Tolerated procedure well Monitor for anemia Pain/wound management per orthopedic Activity and therapy as directed by orthopedic Encourage incentive spirometry Monitor hemoglobin, preop 12.7 Acute blood loss anemia, post-op, and also likely dilutional Pre-op Hgb 12.7, current 9.9 -expected, no need for blood transfusion - cont. to monitor H&H Hyperlipidemia Continue statin GERD Continue PPI Morbid Obesity, BMI 41.6 Encourage diet and lifestyle modifications DVT ppx: per ortho/SCDS Dispo: per ortho FULL CODE PCP: Arjun Browne Thank you for this consultation. We will follow the patient with you during their hospital stay. You can reach a member of the [facility] Hospitalist Team 03/09 via hospitalist role on tiger text. Admission and Anticipated Discharge Date Admission Date: May 11, 2022 Subjective Pt seen in follow up of med consult for s/p spinal surgery Currently laying in bed in NAD Reports episodes of dizziness/ lightheadedness Buck any fever, chills, chest pain, shortness of breath, abd. pain, n/v. Moving lower extremities well. Purcell out. voiding ok, passing flatus, no BM yet Review of Systems Review of Systems: All systems reviewed & are unremarkable except as noted in Subjective Physical Exam Physical Exam: Constitutional:I obese F in NAD Eyes: PERRL, EOMI. conju nctivae normal, an icteric sclerae ENMT: external ear and n ose normal, oropha rynx normal Neck: normal visual insp ection Respiratory: normal respiratory effort, lungs kathrin ar to auscultation Cardiovascular:I RRR, no murmur, no edema Chest (Breasts): Chest: normal insp ection of chest Gastrointestinal ( Abdomen): normal bowel sound s, soft, nontender Musculoskeletal: Extremities: extre mities normal to i nspection (moves e xtremities) Skin: no rashes, warm an d dry Neurologic: PERRL, EOMI, no fa ce palsy, no dysar thria, moves extre mities Psychiatric: A+Ox3, euthymic af fect Results & Data Results & Data Vital Signs (Past 12 Hours) Vital Signs Temp Pulse Resp BP Pulse Ox O2 Del Method 05/13/22 07:24 36.5 C 54 L 16 91/54 L 98 Room Air Laboratory Results 05/13/22 05/13/22 Range/Units 05:44 05:44 WBC 12.01 H (4.8-10.8) K/ul RBC 3.21 L (4.20-5.40) M/uL Hgb 9.9 L (12.0-16.0) g/dl Hct 30.0 L (37.0-47.0) % MCV 93.5 (80.0-100.0) fL MCH 30.8 (25.0-34.0) pg MCHC 33.0 (32.0-36.0) g/dL RDW Std Deviation 46.4 H (36.4-46.3) fL RDW Coeff of Adolfo 13.5 (11.5-14.5) % Plt Count 271 (130-400) K/uL MPV 10.1 (9.4-12.4) fL Sodium 139 (136-145) mmol/L Potassium 4.0 (3.5-5.1) mmol/L Chloride 105 (98-107) mmol/L Carbon Dioxide 30 (21-32) mmol/L Anion Gap 4 (3-11) BUN 14 (6-23) mg/dl Creatinine 0.54 L (0.6-1.2) mg/dl Est Cr Clr Drug Dosing 147.8 ml/min Est GFR ( Amer) 125.7 ml/min Est GFR (Non-Af Amer) 108.5 ml/min BUN/Creatinine Ratio 25.9 H (10-20) Glucose 109 H (70-99(Fasting)) mg/dl Calcium 9.2 (8.6-10.3) mg/dl Medications Administered Current Inpatient Medications Acetaminophen (Acetaminophen 500 Mg Tab) 1,000 mg PO Q8H PRN PRN Reason: MILD Pain Scale 1,2,3 & Pre PT Stop: 06/10/22 17:19 Last Admin: 05/13/22 05:48 Dose: 1,000 mg Al Hydrox/Mg Hydrox/Simethicone (Aluminum/Magnesium Susp 30 Ml Udc) 30 ml PO Q6H PRN PRN Reason: Dyspepsia Stop: 06/10/22 17:19 Atorvastatin Calcium (Atorvastatin 20 Mg Tab) 20 mg PO QAM [facility] Stop: 06/11/22 08:59 Last Admin: 05/13/22 07:27 Dose: 20 mg Bisacodyl (Bisacodyl 10 Mg Supp) 10 mg [place] DAILY PRN PRN Reason: Constipation Stop: 06/10/22 17:19 Diphenhydramine HCl (Diphenhydramine Capsule 25 Mg Cap) 25 mg PO Q6H PRN PRN Reason: Allergic Rhinitis/Insomnia Stop: 06/10/22 17:19 Last Admin: 05/12/22 21:30 Dose: 25 mg Famotidine (Famotidine 20 Mg Tab) 20 mg PO Q12H PRN PRN Reason: Dyspepsia Stop: 06/10/22 17:19 Last Admin: 05/11/22 17:51 Dose: 20 mg Fluticasone Propionate (Fluticasone Propionate Na Spr 16 Gm Btl) 1 sprays NA Q 12H PRN PRN Reason: Allergic Symptoms Stop: 06/10/22 17:19 Furosemide (Furosemide 20 Mg Tab) 20 mg PO QAM PRN PRN Reason: Fluid Retention Stop: 06/10/22 17:19 Hydromorphone HCl (Hydromorphone Inj 0.5 Mg/0.5 Ml Syr) 0.5 mg IV Q3H PRN PRN Reason: MODERATE Pain (Scale 4,5,6) & Stop: 05/25/22 17:19 Last Admin: 05/12/22 05:40 Dose: 0.5 mg Hydromorphone HCl (Hydromorphone Inj 1 Mg/Ml Syringe) 1 mg IV Q3H PRN PRN Reason: SEVERE Pain (Scale 7,8,9,10) Stop: 05/25/22 17:19 Last Admin: 05/12/22 11:23 Dose: 1 mg Hydroxyzine HCl (Hydroxyzine Hcl 25 Mg Tab) 25 mg PO Q8H PRN PRN Reason: Anxiety Stop: 06/10/22 17:19 Promethazine HCl 12.5 mg/ (Sodium Chloride) 50.5 mls @ 202 mls/hr IV Q6H PRN PRN Reason: Nausea &/or Vomiting Stop: 06/10/22 17:19 Dexamethasone 6 mg/ Syringe 1.5 mls @ 1 mls/min IV DAILY [facility] Stop: 05/14/22 09:02 Last Admin: 05/13/22 07:27 Dose: 1 mls/min Sodium Chloride (Nss 1000ml) 1,000 mls @ 125 mls/hr IV .Q8H [facility] Stop: 06/12/22 09:59 Influenza Virus Vaccine Quadrival (Do Not Administer Flu Vaccine) 1 each N/A PRN PRN PRN Reason: Notification Stop: 06/10/22 17:19 Loratadine (Loratadine 10 Mg Tab) 10 mg PO DAILY PRN PRN Reason: Allergic Symptoms Stop: 06/10/22 17:19 Lorazepam (Lorazepam 0.5 Mg Tab) 0.5 mg PO Q8H PRN PRN Reason: Sedation/Anxiety Stop: 06/10/22 17:19 Lorazepam (Lorazepam 2 Mg/1 Ml Vial) 0.5 mg IV Q8H PRN PRN Reason: Sedation/Anxiety Stop: 06/10/22 17:19 Magnesium Hydroxide (Magnesium Hydroxide Susp 30 Ml Udc) 30 ml PO Q24H PRN PRN Reason: Constipation Stop: 06/10/22 17:19 Metoclopramide HCl (Metoclopramide Hcl Inj 5 Mg/Ml 2 Ml Vial) 10 mg IV Q6H PRN PRN Reason: Nausea &/or Vomiting Stop: 06/10/22 17:19 Multivitamins (Multivitamin Tab) 1 tab PO QAM [facility] Stop: 06/11/22 08:59 Last Admin: 05/13/22 07:27 Dose: 1 tab Naloxone HCl (Naloxone Hcl 0.4 Mg/1 Ml Vial/Carp) 0.1 mg IV Q5M PRN PRN Reason: Oversedation/Resp depression Stop: 06/10/22 17:19 Ondansetron HCl (Ondansetron Inj 2 Mg/Ml 2 Ml Vial) 4 mg IV Q6H PRN PRN Reason: Nausea &/or Vomiting Stop: 06/10/22 17:19 Ondansetron HCl (Ondansetron 4 Mg Od Tab) 4 mg PO Q6H PRN PRN Reason: Nausea Stop: 06/10/22 17:19 Oxycodone HCl (Oxycodone Hcl Ir 5 Mg Tab (Immediate Release)) 5 - 10 mg PO Q4H PRN PRN Reason: Pain & Pre PT Stop: 05/25/22 17:19 Last Admin: 05/13/22 05:48 Dose: 10 mg Pantoprazole Sodium (Pantoprazole 40 Mg Tab) 40 mg PO QAM PRN PRN Reason: Acid Reflux Stop: 06/10/22 17:34 Last Admin: 05/12/22 02:29 Dose: 40 mg Pneumococcal Polyvalent Vaccine (Do Not Administer Pneumococcal Vaccine) 1 each N/A PRN PRN PRN Reason: Notification Stop: 06/10/22 17:19 Polyethylene Glycol (Polyethylene (Miralax) 17 Gm Pack) 17 gm PO Q6 [facility] Stop: 06/11/22 05:59 Last Admin: 05/13/22 05:39 Dose: 17 gm Senna/Docusate Sodium (Docusate Sodium/Senna 50/8.6mg Tab) 2 tab PO HS [facility] Stop: 06/10/22 20:59 Last Admin: 05/12/22 20:41 Dose: 2 tab Sodium Biphosphate/Sodium Phosphate (Sod Phosphate/Sod Biphosphate Enema 132 Ml Btl) 132 ml [place] ONE PRN PRN Reason: Constipation Stop: 06/10/22 17:19 Tramadol HCl (Tramadol Hcl 50 Mg Tablet) 50 - 100 mg PO Q4H PRN PRN Reason: Moderate-Severe pain & Pre PT Stop: 06/10/22 17:19
[2022-05-13] MEDS: SODIUM CHLORIDE 0.9% 1000ML 1,000 ML IV SCH ×2 (10:10→18:14)
[2022-05-13] MEDS: DOCUSATE SODIUM/SENNA 50/8.6MG TAB PO SCH (22:01)
[2022-05-13] MEDS: diphenhydrAMINE Capsule 25 MG CAP PO PRN (22:04)
[2022-05-13] MEDS: HYDROmorphone INJ 1 MG/ML SYRINGE IV PRN (22:57)
[2022-05-14] MEDS: SODIUM CHLORIDE 0.9% 1000ML 1,000 ML IV SCH (02:21)
[2022-05-14] MEDS: FAMOTIDINE 20 MG TAB PO PRN (05:33)
[2022-05-14] MEDS: oxyCODONE HCL IR 5 MG TAB (IMMEDIATE RELEASE) PO PRN ×2 (05:33→09:45)
[2022-05-14] MEDS: POLYETHYLENE (MIRALAX) 17 GM PACK PO SCH (05:34)
--- NOTE | 2022-05-14 07:20 | Hospitalist Progress Note ---
Date of Service May 14, 2022 Assessment & Plan (1) Neurogenic claudication due to lumbar spinal stenosis: (2) Hyperlipidemia: (3) Obesity: (4) GERD (gastroesophageal reflux disease): Plan Neurogenic claudication 2/2 lumbar spinal stenosis Patient is 51 yr old F status post L3-L5 lumbar decompression fusion by Dr. Castellanos, POD #3 Tolerated procedure well Monitor for anemia Pain/wound management per orthopedic Activity and therapy as directed by orthopedic Encourage incentive spirometry Monitor hemoglobin, preop 12.7 Acute blood loss anemia, post-op, and also likely dilutional Pre-op Hgb 12.7, current 9.9 -expected, no need for blood transfusion - cont. to monitor H&H Hyperlipidemia Continue statin GERD Continue PPI Morbid Obesity, BMI 41.6 Encourage diet and lifestyle modifications DVT ppx: per ortho/SCDS Dispo: per ortho FULL CODE PCP: Arjun Browne Thank you for this consultation. We will follow the patient with you during their hospital stay. You can reach a member of the [facility] Hospitalist Team 03/09 via hospitalist role on tiger text. Admission and Anticipated Discharge Date Admission Date: May 11, 2022 Subjective Pt seen in follow up of med consult for s/p spinal surgery Currently sitting up in bed in NAD Reported episodes of dizziness/ lightheadedness yesterday AM, received some IV fluids, and reports that since then she was feeling fine, no more episodes of dizziness/headedness. Buck any fever, chills, chest pain, shortness of breath, abd. pain, n/v. Moving lower extremities well. Had BM this AM. Review of Systems Review of Systems: All systems reviewed & are unremarkable except as noted in Subjective Physical Exam Physical Exam: Constitutional:I obese F in NAD Eyes: PERRL, EOMI. conju nctivae normal, an icteric sclerae ENMT: external ear and n ose normal, oropha rynx normal Neck: normal visual insp ection Respiratory: normal respiratory effort, lungs kathrin ar to auscultation Cardiovascular:I RRR, no murmur, no edema Chest (Breasts): Chest: normal insp ection of chest Gastrointestinal ( Abdomen): normal bowel sound s, soft, nontender Musculoskeletal: Extremities: extre mities normal to i nspection (moves e xtremities) Skin: no rashes, warm an d dry Neurologic: PERRL, EOMI, no fa ce palsy, no dysar thria, moves extre mities Psychiatric: A+Ox3, euthymic af fect Results & Data Results & Data Vital Signs (Past 12 Hours) Vital Signs Temp Pulse Resp BP Pulse Ox O2 Del Method 05/13/22 20:26 36.5 C 88 16 136/76 94 Room Air Medications Administered Current Inpatient Medications Acetaminophen (Acetaminophen 500 Mg Tab) 1,000 mg PO Q8H PRN PRN Reason: MILD Pain Scale 1,2,3 & Pre PT Stop: 06/10/22 17:19 Last Admin: 05/13/22 05:48 Dose: 1,000 mg Al Hydrox/Mg Hydrox/Simethicone (Aluminum/Magnesium Susp 30 Ml Udc) 30 ml PO Q6H PRN PRN Reason: Dyspepsia Stop: 06/10/22 17:19 Atorvastatin Calcium (Atorvastatin 20 Mg Tab) 20 mg PO QAM DEYSI Stop: 06/11/22 08:59 Last Admin: 05/13/22 07:27 Dose: 20 mg Bisacodyl (Bisacodyl 10 Mg Supp) 10 mg MI DAILY PRN PRN Reason: Constipation Stop: 06/10/22 17:19 Diphenhydramine HCl (Diphenhydramine Capsule 25 Mg Cap) 25 mg PO Q6H PRN PRN Reason: Allergic Rhinitis/Insomnia Stop: 06/10/22 17:19 Last Admin: 05/13/22 22:04 Dose: 25 mg Famotidine (Famotidine 20 Mg Tab) 20 mg PO Q12H PRN PRN Reason: Dyspepsia Stop: 06/10/22 17:19 Last Admin: 05/14/22 05:33 Dose: 20 mg Fluticasone Propionate (Fluticasone Propionate Na Spr 16 Gm Btl) 1 sprays NA Q12H PRN PRN Reason: Allergic Symptoms Stop: 06/10/22 17:19 Furosemide (Furosemide 20 Mg Tab) 20 mg PO QAM PRN PRN Reason: Fluid Retention Stop: 06/10/22 17:19 Hydromorphone HCl (Hydromorphone Inj 0.5 Mg/0.5 Ml Syr) 0.5 mg IV Q3H PRN PRN Reason: MODERATE Pain (Scale 4,5,6) & Stop: 05/25/22 17:19 Last Admin: 05/12/22 05:40 Dose: 0.5 mg Hydromorphone HCl (Hydromorphone Inj 1 Mg/Ml Syringe) 1 mg IV Q3H PRN PRN Reason: SEVERE Pain (Scale 7,8,9,10) Stop: 05/25/22 17:19 Last Admin: 05/13/22 22:57 Dose: 1 mg Hydroxyzine HCl (Hydroxyzine Hcl 25 Mg Tab) 25 mg PO Q8H PRN PRN Reason: Anxiety Stop: 06/10/22 17:19 Promethazine HCl 12.5 mg/ (Sodium Chloride) 50.5 mls @ 202 mls/hr IV Q6H PRN PRN Reason: Nausea &/or Vomiting Stop: 06/10/22 17:19 Dexamethasone 6 mg/ Syringe 1.5 mls @ 1 mls/min IV DAILY DEYSI Stop: 05/14/22 09:02 Last Admin: 05/13/22 07:27 Dose: 1 mls/min Sodium Chloride (Nss 1000ml) 1,000 mls @ 125 mls/hr IV .Q8H DEYSI Stop: 06/12/22 09:59 Last Admin: 05/14/22 02:21 Dose: 125 mls/hr Influenza Virus Vaccine Quadrival (Do Not Administer Flu Vaccine) 1 each N/A PRN PRN PRN Reason: Notification Stop: 06/10/22 17:19 Loratadine (Loratadine 10 Mg Tab) 10 mg PO DAILY PRN PRN Reason: Allergic Symptoms Stop: 06/10/22 17:19 Lorazepam (Lorazepam 0.5 Mg Tab) 0.5 mg PO Q8H PRN PRN Reason: Sedation/Anxiety Stop: 06/10/22 17:19 Lorazepam (Lorazepam 2 Mg/1 Ml Vial) 0.5 mg IV Q8H PRN PRN Reason: Sedation/Anxiety Stop: 06/10/22 17:19 Magnesium Hydroxide (Magnesium Hydroxide Susp 30 Ml Udc) 30 ml PO Q24H PRN PRN Reason: Constipation Stop: 06/10/22 17:19 Metoclopramide HCl (Metoclopramide Hcl Inj 5 Mg/Ml 2 Ml Vial) 10 mg IV Q6H PRN PRN Reason: Nausea &/or Vomiting Stop: 06/10/22 17:19 Multivitamins (Multivitamin Tab) 1 tab PO QAM DEYSI Stop: 06/11/22 08:59 Last Admin: 05/13/22 07:27 Dose: 1 tab Naloxone HCl (Naloxone Hcl 0.4 Mg/1 Ml Vial/Carp) 0.1 mg IV Q5M PRN PRN Reason: Oversedation/Resp depression Stop: 06/10/22 17:19 Ondansetron HCl (Ondansetron Inj 2 Mg/Ml 2 Ml Vial) 4 mg IV Q6H PRN PRN Reason: Nausea &/or Vomiting Stop: 06/10/22 17:19 Ondansetron HCl (Ondansetron 4 Mg Od Tab) 4 mg PO Q6H PRN PRN Reason: Nausea Stop: 06/10/22 17:19 Oxycodone HCl (Oxycodone Hcl Ir 5 Mg Tab (Immediate Release)) 5 - 10 mg PO Q4H PRN PRN Reason: Pain & Pre PT Stop: 05/25/22 17:19 Last Admin: 05/14/22 05:33 Dose: 10 mg Pantoprazole Sodium (Pantoprazole 40 Mg Tab) 40 mg PO QAM PRN PRN Reason: Acid Reflux Stop: 06/10/22 17:34 Last Admin: 05/12/22 02:29 Dose: 40 mg Pneumococcal Polyvalent Vaccine (Do Not Administer Pneumococcal Vaccine) 1 each N/A PRN PRN PRN Reason: Notification Stop: 06/10/22 17:19 Polyethylene Glycol (Polyethylene (Miralax) 17 Gm Pack) 17 gm PO Q6 DEYSI Stop: 06/11/22 05:59 Last Admin: 05/14/22 05:34 Dose: 17 gm Senna/Docusate Sodium (Docusate Sodium/Senna 50/8.6mg Tab) 2 tab PO HS DEYSI Stop: 06/10/22 20:59 Last Admin: 05/13/22 22:01 Dose: 2 tab Sodium Biphosphate/Sodium Phosphate (Sod Phosphate/Sod Biphosphate Enema 132 Ml Btl) 132 ml MI ONE PRN PRN Reason: Constipation Stop: 06/10/22 17:19 Tramadol HCl (Tramadol Hcl 50 Mg Tablet) 50 - 100 mg PO Q4H PRN PRN Reason: Moderate-Severe pain & Pre PT Stop: 06/10/22 17:19
[2022-05-14] MEDS: dexAMETHasone 6 MG in SYRINGE 0 ML IV SCH (08:13)
[2022-05-14] MEDS: ATORVASTATIN 20 MG TAB PO SCH (08:13)
[2022-05-14] MEDS: MULTIVITAMIN TAB PO SCH (08:13)
--- NOTE | 2022-05-14 09:36 | Discharge Summary ---
Date of Service May 14, 2022 Admission HPI Per Admitting Provider This is a 51-year-old female who presents with above-mentioned diagnosis after failing course of nonoperative care she is here for surgical intervention. Principal Diagnosis Lumbar spinal stenosis with neurogenic claudication Discharge Data Allergies Allergy/AdvReac Type Severity Reaction Status Date / Time theophylline Allergy Slo-bid Verified 05/11/22 10:41 (unknown reaction as child) Consultations 05/11/22 17:20 Consult Hospitalist Routine Procedures Performed Operation Date: 05/11/22 12:55 Actual Procedures p L3-L5 Decompression and Fusion, Spinal Cord Monitoring(Not Applicable) - Kirill Castellanos DO Ordered Studies 05/11/22 12:55 [place] lumbar spine 2-3V Routine Hospital Course (1) Neurogenic claudication due to lumbar spinal stenosis: Patient underwent lumbar decompression fusion tolerated this well was taken to orthopedic left upper leg. Postop day 1 she was up and ambulating progressed to postop day #2 on postop day 3 pain was well controlled JAKE drain decreased appropriately. Excellent strength testing. Subsequent discharge home. Discharge orders and instructions found in chart for further review. Total Time Total Time Spent Total Time Spent (In Minutes): 20 minutes Discharge Plan Discharge Items Patient Disposition: Home - Self-Care Reason For Visit: POSTOP Discharge Diagnosis: Lumbar spinal stenosis with spondylolisthesis and neurogenic claudication Activity: As commented below Non-emergency contact: Primary Care Provider Call non-emergency contact if: you have any medication questions Follow-up/Referrals: Arjun Browne DO [Primary Care Provider] - Diet: Regular Addtl Attending Provider Instructions: ACTIVITY RECOMMENDATIONS: SELF CARE INSTRUCTIONS AFTER THORACIC/LUMBAR FUSIONS 1. You may walk to your tolerance. It is good exercise for your legs and back. Expect some back and intermittent leg aches and pains. 2. You may perform "counter-top" level activities (make a sandwich, margarita with a project, etc.). 3. No bending or lifting of more than 10 pounds or back twisting of any nature (roll like a log when turning in bed). 4. You may ride in a car for 20-30 minutes at a time. No driving until after your first visit with your doctor. 5. Frequent changes of position and restricting sitting to 30 minutes at a time will help limit the amount of back spasms and stiffness you may experience. 6. You may discontinue the use of ambulatory aids (cane, crutches, etc.) once your strength and confidence allow. 7. You may finishing room supervisor the shower and let water strike your incision when you arrive home at least once daily. Do not take a tub bath, sit in a hot tub or go into a swimming pool until after your first recheck in the office. SPECIAL CARE INSTRUCTIONS: VERY IMPORTANT TO READ AND REVIEW A. Your surgical incision has been closed with a cosmetic suture under the skin that will dissolve in about 6 weeks. In 14 days, you can use a pair of clean scissors and cut the suture that is left outside of the skin at the ends of your incision. 1. The small skin tapes can be removed 7 days after surgery if they have not fallen off by that point. 2. You may keep the wound open to air as much as possible to promote healing after post-op day number 5 unless told otherwise by your doctor. 3. If you think the wound looks like it is becoming infected (redness or worsening drainage) and/or you are experiencing fever, chill or worsening back pain and muscle spasms, contact the office so that we may evaluate you as soon as possible. B. Complications are uncommon, but please contact us if you have any signs or symptoms of: 1. wound infection (fever higher than 102.5 degrees F, redness, separation of wound, drainage, or increasing pain from the incision) 2. blood clots in legs (pain, swelling, redness and warmth in legs) 3. urinary tract infection (fever higher than 102.5 degrees F, burning upon urination or increased frequency of urination) 4. nerve problems (inability to walk on your toes or heels, numbness, loss of bowel or bladder control) 5. any other symptoms that concern you C. Please call the office at if you have any concerns or questions about your operation or recovery. D. No smoking! Smoking drastically decreases the chance of a solid fusion. E. Do not take any anti-inflammatory medications (Indocin, Advil, Motrin, Aspirin, Naprosyn, etc.) as these may inhibit the chance of a solid fusion. Tylenol is okay to take for pain. MANAGING PAIN AFTER SPINAL SURGERY 1. Narcotic medication is intended for short-term use and will be provided for surgical pain. Surgical pain usually lasts for a period of 4-6 weeks. Narcotic medication includes Percocet, Vicodin, Darvocet, Tylenol #3 or Lortab. 2. Longer-term pain is more appropriately treated with non-narcotic medication such as Tylenol ES. 3. Muscle spasm is not appropriately treated with narcotics. Muscle relaxers such as Soma, Flexeril or Skelaxin can be used along with Tylenol ES. 4. Remember that we all live with some "aches and pains". This is not unusual or uncommon after an injury or as we get older. a. Back pain is expected and may include muscle spasms for 4 to 6 weeks after surgery. The pain should gradually improve. If the pain worsens for no apparent reason, please contact the office. b. Intermittent leg pain may also be experienced and should not be concerned about unless it worsens for no apparent reason. If so, please contact the office. 5. We will provide appropriate medication within the normal guidelines of their prescribed use. We will also be very cautious and aware of potential abuse and extended duration of patients' medication needs. a. Pain medications are for your comfort and to assist with sleep and rest so that the tissue can heal. They are not provided in order to return to normal activity and should not be used through the day. To do so or worsening pain at night can result from ongoing tissue damage and development of tolerance to the prescribed medicine. 6. Please allow 2-3 days to process refills. Prescriptions will not be mailed but must be picked up at the office. FOLLOW UP VISIT: Keep your scheduled follow-up appointment. Any questions, please call the office at . Pending Studies at Discharge: No Stand-Alone Forms: [facility], Smoking Cessation Medications and DC Order Prescriptions: New tramadol 50 mg tablet 50 mg PO Q6H PRN (Reason: pain, moderate) Qty: 30 0RF oxycodone-acetaminophen [Percocet] 5-325 mg tablet 1 tab PO Q8H Qty: 30 0RF Continued multivitamin Tablet 1 tab PO QAM acetaminophen [Tylenol] 325 mg Tablet 325 mg PO QAM PRN (Reason: Pain) atorvastatin 20 mg Tablet 20 mg PO QAM furosemide [Lasix] 20 mg Tablet 20 mg PO QAM PRN (Reason: Fluid Retention) fluticasone propionate 50 mcg/actuation [place],Suspension 1 spray INTRANASAL Q12H PRN (Reason: Allergic Symptoms) Rx Instructions: administer into each nostril loratadine [Claritin] 10 mg Tablet 10 mg PO DAILY PRN (Reason: Allergic Symptoms) omeprazole 20 mg Tablet,Delayed Release (Dr/Ec) 20 mg PO QAM PRN (Reason: Acid Reflux) Discharge Orders: Discharge Order (Routine); Ordered 05/14/22 Ordered By: Kirill Castellanos Admission Data Admit Date/Time: 05/11/22 15:32 Attending Provider: Kirill Castellanos Admit Provider: Kirill Castellanos Primary Care Provider: Arjun Browne Other Providers: Neva Hilario ; Drew Bennett
== END 2022-05-14 11:50 | disposition home or self-care (01) ==
LOC: ASU 10:10 → 3E 15:32 → INTOOBSV 15:32